=== PATIENT | male | born 1990 | race Caucasian/White ===

== ENCOUNTER 2018-01-14 16:44 | Observation (INO) | payer OTHER ==
--- NOTE | 2018-01-14 17:22 | PDOC ---
History of Present Illness - General History Source: Patient Exam Limitations: No Limitations - History of Present Illness Initial Comments: 01/14/18 17:55 The patient is a 27 year old male with no significant past medical history who presents to the ED with complaints of arthralgia and swelling of the joints for one week. The patient states he developed pain and swelling to his bilateral ankles and pain to his left elbow and left wrist over one week ago. Patient notes his symptoms progressively worsened and he developed pain to his right knee and swelling to his bilateral feet a few days ago. Patient notes his pain is worsened when he walks and is also worsened in the morning. He also reports sore throat, cough, night sweats and a subjective fever at night for the past several days. Patient reports taking 800 mg of ibuprofen with minimal relief of present symptoms. Denies similar symptoms in the past. Denies recent travel. Deneis exposure to new foods, lotions, or pets. Denies recent hiking or outdoor activities. Denies chest pain or shortness of breath. Denies dysuria or change in urinary output. Denies rashes or bruising. Denies any other symptoms. Social hx: The patient reports cigarette and marijuana use. 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 Patient reports multiple sexual partners in the past 6 months and states he uses protection most of the time. <Sae Waddell - Last Filed: 01/14/18 20:10> <Devaughn Florez - Last Filed: 01/14/18 20:47> - General Chief Complaint: Pain Stated Complaint: SWOLLEN ANKLES/PAIN Time Seen by Provider: 01/14/18 17:12 Past History <Sae Waddell - Last Filed: 01/14/18 20:10> - Past Medical History Asthma: Yes (seasonal) COPD: No - Suicide/Smoking/Psychosocial Hx Smoking History: Current every day smoker Number of Cigarettes Smoked Daily: 2 Information on smoking cessation initiated: No <Devaughn Florez - Last Filed: 01/14/18 20:47> - Past Medical History Allergies/Adverse Reactions: Allergies Allergy/AdvReac Type Severity Reaction Status Date / Time Penicillins Allergy Verified 01/14/18 16:49 Home Medications: Ambulatory Orders NK [No Known Home Medication] 01/14/18 Review of Systems - Review of Systems Able to Perform ROS?: Yes Comments:: 01/14/18 17:56 A complete review of 10 out of 10 review of systems is taken and is negative apart from what is previously mentioned below and in the HPI. <Sae Waddell - Last Filed: 01/14/18 20:10> *Physical Exam - Vital Signs Last Vital Signs Temp Pulse Resp BP Pulse Ox 97 F L 131 H 20 148/79 99 01/14/18 16:46 01/14/18 16:46 01/14/18 16:46 01/14/18 16:46 01/14/18 16:46 - Physical Exam Comments: 01/14/18 17:57 Vitals: Triage Vital signs reviewed General Appearance: no acute distress, well nourished well developed, Head: Atraumatic, normocephalic Neck: Supple;No Nuchal rigidity Chest Wall: Nontender Cardiac: Regular rate and rhythm, no murmurs, no rubs, no gallops, Lungs: Clear to auscultation bilateral, good air movement bilaterally, Abdomen: Soft, nondistended, normal bowel sounds, nontender to palpation Rectal: Exam deferred Extremities: + bilateral ankle swelling. Pain with range of motion of the left elbow, left wrist, and right knee. Full range of motion to all extremities, no cyanosis, clubbing. Skin: Warm and dry, no rashes or lesions, no petechiae Neuro: AOX3; Cranial Nerves 2-12 grossly c intact, Strength intact to all extremities, Sensation intact to all extremities, Psych: normal mood, normal affect <Sae Waddell - Last Filed: 01/14/18 20:10> - Vital Signs Last Vital Signs Temp Pulse Resp BP Pulse Ox 97 F L 131 H 20 148/79 99 01/14/18 16:46 01/14/18 16:46 01/14/18 16:46 01/14/18 16:46 01/14/18 16:46 <Devaughn Florez - Last Filed: 01/14/18 20:47> ED Treatment Course - LABORATORY CBC & Chemistry Diagram: 01/14/18 17:43 01/14/18 17:43 <Sae Waddell - Last Filed: 01/14/18 20:10> - LABORATORY CBC & Chemistry Diagram: 01/14/18 17:43 01/14/18 17:43 <Vikki,Devaughn - Last Filed: 01/14/18 20:47> Medical Decision Making - Medical Decision Making 01/14/18 17:58 The patient is a 27 year old male with no significant past medical history who presents to the ED with complaints of arthralgia and swelling of the joints for one week. Will obtain labs, Chest X-Ray, and rectal temp. Will give meds. 01/14/18 19:[address] Andrade, infectious disease, at 19:38 for consult and admission. 01/14/18 20:10 Case discussed with Hospitalist, Dr. Ivory, for admission at 20:05. <Sae Waddell - Last Filed: 01/14/18 20:10> - Medical Decision Making Polyarthralgia, with fever night sweats, recent URI prior to sx. Diff dx includes post strep/post viral/gonnoccocal/rheumatic. Case D/W Dr. Andrade. Will admit to f/u labs cx. Will treat with CTX <Devaughn Florez - Last Filed: 01/14/18 20:47> *DC/Admit/Observation/Transfer - Attestations Scribe Attestion: 01/14/18 17:59 Documentation prepared by Sae Waddell, acting as chief medical technologist for Devaughn Florez MD <Sae Waddell - Last Filed: 01/14/18 20:10> - Discharge Dispostion Admit: Yes <Devaughn Florez - Last Filed: 01/14/18 20:47> Diagnosis at time of Disposition: Polyarthralgia - Referrals Referrals: Prince Olson MD [Primary Care Provider] - - Patient Instructions - Post Discharge Activity
[2018-01-14 17:53] LABS: BASO % 0.6 % (0-2.0); EOS % 0.8 % (0-4.5); HEMATOCRIT 42.1 % (35.4-49); HEMOGLOBIN 14.5 GM/dL (11.7-16.9); LYMPH % 11.7 % (8-40); MCH 29.7 pg (25.7-33.7); MCHC 34.5 g/dl (32.0-35.9); MEAN CELL VOLUME 86.1 fl (80-96); MEAN PLT VOLUME 7.2 fl (7.5-11.1); MONO % 7.1 % (3.8-10.2); NEUT % 79.8 % (42.8-82.8); PLATELET COUNT 316 K/MM3 (134-434); RBC 4.89 M/mm3 (4.00-5.60); WHITE BLOOD COUNT 10.3 K/mm3 (4.0-10.0)
[2018-01-14] MEDS ORDERED: SODIUM CHLORIDE 0.9% 1000 ML INFUS.BAG IV ONE (18:10)
[2018-01-14 18:25] LABS: ALBUMIN 3.8 g/dl (3.4-5.0); ANION GAP 11 (8-16); BLOOD UREA NITROGEN 10 mg/dL (7-18); CALCIUM 8.9 mg/dL (8.5-10.1); CHLORIDE 104 mmol/L (98-107); CO2 23 mmol/L (21-32); CREATININE 0.8 mg/dL (0.7-1.3); GLUCOSE,RANDOM 109 mg/dL (74-106); POTASSIUM 3.7 mmol/L (3.5-5.1); SGOT/AST 26 U/L (15-37); SGPT/ALT 47 U/L (12-78); SODIUM 138 mmol/L (136-145); TOT PROT 7.4 g/dl (6.4-8.2)
[2018-01-14 18:26] LABS: ALK PHOS 100 U/L (45-117); BILIRUBIN,TOTAL 0.3 mg/dL (0.2-1.0)
[2018-01-14] MEDS ORDERED: SODIUM CHLORIDE 0.9% 1000 ML INFUS.BAG IV STA (18:26)
[2018-01-14 18:32] LABS: URINE APPEARANCE CLEAR; URINE BILIRUBIN NEGATIVE (<2.0 mg/dL); URINE BLOOD NEGATIVE (NEGATIVE); URINE COLOR YELLOW; URINE GLUCOSE (UA) NEGATIVE (NEGATIVE); URINE KETONE NEGATIVE (NEGATIVE); URINE LEUK ESTERASE NEGATIVE (NEGATIVE); URINE NITRITE NEGATIVE (NEGATIVE); URINE PROTEIN NEGATIVE (NEGATIVE); URINE UROBILINOGEN NEGATIVE mg/dL (0.2-1.0)
[2018-01-14] MEDS ORDERED: ACETAMINOPHEN 1000 MG/100 ML VIAL (NON FORMULARY) IVPB ONE (19:01)
[2018-01-14] MEDS ORDERED: ACETAMINOPHEN INJECTION 100 ML IVPB ONE (19:13)
[2018-01-14] MEDS ORDERED: CEFTRIAXONE 2 GM-D5W BAG 2 GM/50 ML BAG IVPB ONE (19:43)
[2018-01-14] MEDS ORDERED: CEFTRIAXONE 2 GM/100 ML BAG IVPB ONE (19:56)
--- NOTE | 2018-01-14 21:30 | PN ---
Teaching Attending Note Name of Resident: Jean Moran ATTENDING PHYSICIAN STATEMENT I saw and evaluated the patient. Chart, data, imaging reviewed. I reviewed the resident's note and discussed the case with the resident. I agree with the resident's findings and plan as documented. SUBJECTIVE: 27yo previously healthy man c/o b/l ankle swelling and pain, left elbow pain, knee, wrist pain b/l for about one week associated with fever, loose stools which started today. Pt says he had sore throat and cough about 3 weeks prior to onset of his symptoms. Reports some sick contacts, has had multiple sexual partners in the past year (all women) and had inconsistent condom use. Denied any IV drug abuse, recent travels, tick bites. ESR, CRP mildy elevated. Penicillin allergy(rash) tolerated ceftriaxone in the ER. OBJECTIVE: Last Vital Signs Temp Pulse Resp BP Pulse Ox 100.5 F H 131 H 20 148/79 99 01/14/18 18:11 01/14/18 16:46 01/14/18 16:46 01/14/18 16:46 01/14/18 16:46 General- nad, aaox3, obese heent- nc, at, no pharyngeal erythema neck supple cv-s1+s2+rrr chest- cta b/l abdomen- soft, nt SKin- no rashes seen Msk- b/l ankle swelling, nonerythemaotous, not warm to touch, elbows, wrists- no synovitis, swelling, or erythema Abnormal Lab Results 01/14/18 01/14/18 01/14/18 17:43 17:43 17:43 WBC 10.3 H MPV 7.2 L ESR Random Glucose 109 H C-Reactive Protein 6.5 H 01/14/18 17:43 WBC MPV ESR 27 H Random Glucose C-Reactive Protein CXR- -clear, sharp costophrenic angles ekg- nsr, no st- t changes ASSESSMENT AND PLAN: #28yo previously healthy man with acute onset of polyarthralgias with tenderness /swelling of ankles b/l- broad differential- likely to be had reactive arthritis post viral viral uri. Can also be primary viral induced arthritis such as 2/2 to parvovirus b19. Highly unlikely septic arthritis as this usually monoarthritis with hot and erythemaotous joint. Furthermore, pt has no risk factors. For same reason less likely to be crystal induced arthropathy. No family history of rheum dz so less likely to be autoimmune. Should r/o lyme dz. R/o Primary HIV infection as pt has mult sex partners and inconsistent condom use. -observation -send lyme serology -HIV 4th generation serology -GC/chlamydia NAAT in urine -syphilis serology -after school counselor on safe sex practices -CCRP, RF, CELESTE -f/u blood and urine cx -prednisone 40mg stat -ibuprofen 400mg PO q6hrs PRN -ID, rheum evaluation
[2018-01-14] MEDS ORDERED: predniSONE 20 MG TABLET (UD) PO ONE (21:31)
[2018-01-14] MEDS ORDERED: IBUPROFEN 400 MG TABLET (FP) PO PRN ×2 (21:45→22:22)
--- NOTE | 2018-01-14 21:45 | HP ---
CHIEF COMPLAINT: Joint Pain HISTORY OF PRESENT ILLNESS: 27 year old M with no significant pmh presented with 1 week history of foot swelling and joint pain in left elbow, wrist, and right knee as well as both ankles. Patient states over the past week he has been having increasing pain and swelling. The pain is 12/10, nonradiating, not improved by ibuprofen 800, and worse when he walks. Patient had a recent sore throat, cough, and viral illness 3 weeks ago. Patient endorses chills, ear pain, cough with green sputum , loose stools. Patient denies any fever, chest pain, shortness of breath, history of autoimmune disease, recent camping/travel, any tick bites, dysuria, blurry vision, hematuria, penile discharge. Patient is sexually active with women and engages in anal, oral, and vaginal sex. He uses condoms intermittently and has ~5 partners over the last year. Patient denies any rash. ROS as per hpi Recent Travel: denies PAST MEDICAL HISTORY: denies PAST SURGICAL HISTORY: denies Social History: Smoking: + few cigarettes/day, +marijuana Alcohol: occasional Drugs: None Family History: DM and HLD, no fhx of autoimmune dz or inflammatory arthritis Allergies Penicillins Allergy (Verified 01/14/18 16:49) HOME MEDICATIONS: Home Medications Medication Instructions Recorded NK [No Known Home Medication] 01/14/18 PHYSICAL EXAMINATION Vital Signs - 24 hr 01/14/18 01/14/18 16:46 18:11 Temperature 97 F L 100.5 F H Pulse Rate 131 H Respiratory 20 Rate Blood Pressure 148/79 O2 Sat by Pulse 99 Oximetry (%) GENERAL: Awake, alert, and fully oriented, in no acute distress. HEAD: Normal with no signs of trauma. EYES: Pupils equal, round and reactive to light, extraocular movements intact, sclera anicteric, conjunctiva clear. No lid lag. EARS, NOSE, THROAT: Oropharynx clear without exudates. Moist mucous membranes. No pharyngeal erythema NECK: Normal range of motion, supple without lymphadenopathy, JVD, or masses. LUNGS: Breath sounds equal, clear to auscultation bilaterally. No wheezes, and no crackles. No accessory muscle use. HEART: Regular rate and rhythm, normal S1 and S2 without murmur, rub or gallop. ABDOMEN: Soft, nontender, not distended, normoactive bowel sounds, no guarding, no rebound, no masses. No hepatomegaly or splenomegaly. MUSCULOSKELETAL: Normal range of motion at all joints. No bony deformities. No CVA tenderness. +tenderness at bilateral ankle joints on palpation. No erythema. +edema at ankle joints. No swelling elsewhere. NEUROLOGICAL: Cranial nerves II-XII intact. Normal speech PSYCHIATRIC: Cooperative. Good eye contact. Appropriate mood and affect. SKIN: Warm, dry, normal turgor, no rashes or lesions noted, normal capillary refill. Laboratory Results - last 24 hr 01/14/1818 01/14/18 17:43 17:43 17:43 WBC 10.3 H RBC 4.89 Hgb 14.5 Hct 42.1 MCV 86.1 MCH 29.7 MCHC 34.5 RDW 12.0 Plt Count 316 MPV 7.2 L Neutrophils % 79.8 Lymphocytes % 11.7 Monocytes % 7.1 Eosinophils % 0.8 Basophils % 0.6 ESR Sodium 138 Potassium 3.7 Chloride 104 Carbon Dioxide 23 Anion Gap 11 BUN 10 Creatinine 0.8 Creat Clearance w eGFR > 60 Random Glucose 109 H Lactic Acid Calcium 8.9 Total Bilirubin 0.3 AST 26 ALT 47 Alkaline Phosphatase 100 Creatine Kinase 111 C-Reactive Protein 6.5 H Total Protein 7.4 Albumin 3.8 Urine Color Urine Appearance Urine pH Ur Specific [place] Urine Protein Urine Glucose (UA) Urine Ketones Urine Blood Urine Nitrite Urine Bilirubin Urine Urobilinogen Ur Leukocyte Esterase 01/14/1818 01/14/18 17:43 18:25 19:00 WBC RBC Hgb Hct MCV MCH MCHC RDW Plt Count MPV Neutrophils % Lymphocytes % Monocytes % Eosinophils % Basophils % ESR 27 H Sodium Potassium Chloride Carbon Dioxide Anion Gap BUN Creatinine Creat Clearance w eGFR Random Glucose Lactic Acid 0.7 Calcium Total Bilirubin AST ALT Alkaline Phosphatase Creatine Kinase C-Reactive Protein Total Protein Albumin Urine Color Yellow Urine Appearance Clear Urine pH 5.0 Ur Specific [place] 1.018 Urine Protein Negative Urine Glucose (UA) Negative Urine Ketones Negative Urine Blood Negative Urine Nitrite Negative Urine Bilirubin Negative Urine Urobilinogen Negative Ur Leukocyte Esterase Negative ASSESSMENT/PLAN: 27 year old M with no pmh presented with polyarthritis and feet swelling after a recent URI #Polyarthralgias and edema after a viral URI -Lyme serology -CELESTE -GC urine -HIV testing -CELESTE, RF, CCP -Cx pending -Prednisone 40 mg given -Ibuprofen 400 q6 prn -ID consulted -Rheumatology consulted #FEN/GI -no ivf -wnl -regular #ppx -early ambulation M/S Obs Visit type - Emergency Visit Emergency Visit: Yes ED Registration Date: 01/14/18 Care time: The patient presented to the Emergency Department on the above date and was hospitalized for further evaluation of their emergent condition. - New Patient This patient is new to me today: Yes Date on this admission: 01/14/18 - Critical Care Critical Care patient: No Hospitalist Screening - Colonoscopy Questionnaire Colonoscopy Questionnaire: Colonoscopy Questionnaire - Patient: 50 - 75 years old and never had a screening colonoscopy: Unknown History of colon or rectal polyps, or CA: Unknown History of IBD, Crohn's disease or UC: Unknown History of abdominal radiation therapy as a child: Unknown - Relative: 1 with colon or rectal CA, or polyps at age 60 or younger: Unknown Colon or rectal CA diagnosed at age 45 or younger: Unknown Multiple relatives with colon or rectal CA: Unknown - Outcome: Screening Result: Negative Screen
[2018-01-14] MEDS ORDERED: predniSONE 20 MG TABLET (UD) ONE (21:50)
[2018-01-15] MEDS ORDERED: MELATONIN 5 MG TABLETS PO ONE (00:34)
[2018-01-15 02:12] VITALS: BMI 30.9
[2018-01-15 06:52] VITALS: BP 129/90; PULSE 72; TEMP 97.5
[2018-01-15 08:10] LABS: BASO % 0.6 % (0-2.0); HEMATOCRIT 44.4 % (35.4-49); HEMOGLOBIN 15.3 GM/dL (11.7-16.9); LYMPH % 11.2 % (8-40); MCHC 34.5 g/dl (32.0-35.9); MEAN PLT VOLUME 7.4 fl (7.5-11.1); NEUT % 85.2 % (42.8-82.8); PLATELET COUNT 330 K/MM3 (134-434); RDW 12.1 % (11.9-15.9); WHITE BLOOD COUNT 9.8 K/mm3 (4.0-10.0)
[2018-01-15 08:41] LABS: ALBUMIN 3.8 g/dl (3.4-5.0); ANION GAP 9 (8-16); BLOOD UREA NITROGEN 8 mg/dL (7-18); CALCIUM 9.6 mg/dL (8.5-10.1); CHLORIDE 106 mmol/L (98-107); CO2 26 mmol/L (21-32); CREATININE 0.7 mg/dL (0.7-1.3); GLUCOSE,RANDOM 118 mg/dL (74-106); MAGNESIUM 2.5 mg/dL (1.8-2.4); POTASSIUM 4.4 mmol/L (3.5-5.1); SGOT/AST 27 U/L (15-37); SGPT/ALT 48 U/L (12-78); SODIUM 141 mmol/L (136-145); TOT PROT 7.5 g/dl (6.4-8.2)
[2018-01-15 08:46] LABS: ALK PHOS 103 U/L (45-117); BILIRUBIN,TOTAL 0.4 mg/dL (0.2-1.0); PHOSPHOROUS 3.7 mg/dL (2.5-4.9)
[2018-01-15] MEDS ORDERED: NICOTINE 14 MG/24 HOURS TOPICAL PATCH TD SCH (10:00)
--- NOTE | 2018-01-15 15:14 | HOSP ---
Subjective - Review of Symptoms Events since last encounter: patient left AMA without waiting for MD dozier. Physical Examination Vital Signs: Vital Signs Temperature 97.5 F L 01/15/18 05:00 Pulse Rate 72 01/15/18 05:00 Respiratory Rate 20 01/15/18 05:36 Blood Pressure 129/90 01/15/18 05:00 O2 Sat by Pulse Oximetry (%) 99 01/15/18 05:36 Labs: CBC, BMP 01/15/18 07:40 01/15/18 07:40
--- NOTE | 2018-01-15 15:32 | EKG ---
Test Reason : Blood Pressure : / mmHG Vent. Rate : 088 BPM Atrial Rate : 088 BPM P-R Int : 168 ms QRS Dur : 092 ms QT Int : 368 ms P-R-T Axes : 038 031 016 degrees QTc Int : 445 ms NORMAL SINUS RHYTHM NORMAL ECG NO PREVIOUS ECGS AVAILABLE Confirmed by AKOSUA CARIAS, VIANEY ([id number]) on 01/15/2018 3:32:31 PM Referred By: Confirmed By:VIANEY SOUTH MD
--- NOTE | 2018-01-16 14:00 | DS ---
Physical Exam: Microbiology 01/14/18 20:00 Throat Group A Strep Rapid Antigen - Final 01/14/18 18:25 Urine - Urine Clean Catch Urine Culture - Final NO GROWTH OBTAINED 01/14/18 20:00 Throat Throat Culture - Preliminary 01/14/18 20:00 Throat Pending Organism 01/14/18 17:43 Blood - Peripheral Venous Blood Culture - Preliminary NO GROWTH OBTAINED AFTER 24 HOURS, INCUBATION TO CONTINUE FOR 4 DAYS. 01/14/18 17:43 Blood - Peripheral Venous Blood Culture - Preliminary NO GROWTH OBTAINED AFTER 24 HOURS, INCUBATION TO CONTINUE FOR 4 DAYS. Selected Entries 01/14/18 01/14/18 01/15/18 16:46 18:11 05:00 Temperature 97 F L 100.5 F H 97.5 F L Pulse Rate 131 H 72 Respiratory Rate Blood Pressure 129/90 O2 Sat by Pulse Oximetry (%) 01/15/18 05:36 Temperature Pulse Rate Respiratory 20 Rate Blood Pressure O2 Sat by Pulse 99 Oximetry (%) Laboratory Tests 01/14/18 01/14/18 01/14/18 17:43 17:43 17:43 WBC 10.3 H Hgb Hct Plt Count ESR 27 H Sodium Potassium Chloride Carbon Dioxide Anion Gap BUN Creatinine Creat Clearance w eGFR Random Glucose C-Reactive Protein 6.5 H Urine Protein Urine Glucose (UA) Urine Ketones Urine Blood Urine Nitrite Urine Bilirubin Urine Urobilinogen Ur Leukocyte Esterase Rheumatoid Factor Cycl Citrul Peptide IgG CELESTE Screen RPR Titer Lyme Disease IgG/IgM C. trachomatis (FRANCIE) HIV 1&2 Antibody Screen HIV P24 Antigen N. gonorrhoeae (FRANCIE) Anti-Streptolysin Scrn 01/14/18 01/14/18 01/14/18 18:25 18:25 18:25 WBC Hgb Hct Plt Count ESR Sodium Potassium Chloride Carbon Dioxide Anion Gap BUN Creatinine Creat Clearance w eGFR Random Glucose C-Reactive Protein Urine Protein Negative Urine Glucose (UA) Negative Urine Ketones Negative Urine Blood Negative Urine Nitrite Negative Urine Bilirubin Negative Urine Urobilinogen Negative Ur Leukocyte Esterase Negative Rheumatoid Factor Cycl Citrul Peptide IgG CELESTE Screen RPR Titer Lyme Disease IgG/IgM Pending C. trachomatis (FRANCIE) Pending HIV 1&2 Antibody Screen HIV P24 Antigen N. gonorrhoeae (FRANCIE) Pending Anti-Streptolysin Scrn 01/14/18 01/14/18 01/15/18 20:15 20:18 07:40 WBC 9.8 Hgb 15.3 Hct 44.4 Plt Count 330 ESR Sodium Potassium Chloride Carbon Dioxide Anion Gap BUN Creatinine Creat Clearance w eGFR Random Glucose C-Reactive Protein Urine Protein Urine Glucose (UA) Urine Ketones Urine Blood Urine Nitrite Urine Bilirubin Urine Urobilinogen Ur Leukocyte Esterase Rheumatoid Factor Cycl Citrul Peptide IgG CELESTE Screen Pending RPR Titer Lyme Disease IgG/IgM C. trachomatis (FRANCIE) HIV 1&2 Antibody Screen HIV P24 Antigen N. gonorrhoeae (FRANCIE) Anti-Streptolysin Scrn 50.1 01/15/18 01/15/18 01/15/18 07:40 07:40 07:40 WBC Hgb Hct Plt Count ESR Sodium 141 Potassium 4.4 Chloride 106 Carbon Dioxide 26 Anion Gap 9 BUN 8 Creatinine 0.7 Creat Clearance w eGFR > 60 Random Glucose 118 H C-Reactive Protein Urine Protein Urine Glucose (UA) Urine Ketones Urine Blood Urine Nitrite Urine Bilirubin Urine Urobilinogen Ur Leukocyte Esterase Rheumatoid Factor < 10.0 Cycl Citrul Peptide IgG Pending CELESTE Screen RPR Titer Lyme Disease IgG/IgM C. trachomatis (FRANCIE) HIV 1&2 Antibody Screen Negative HIV P24 Antigen Negative N. gonorrhoeae (FRANCEI) Anti-Streptolysin Scrn 01/15/18 07:40 WBC Hgb Hct Plt Count ESR Sodium Potassium Chloride Carbon Dioxide Anion Gap BUN Creatinine Creat Clearance w eGFR Random Glucose C-Reactive Protein Urine Protein Urine Glucose (UA) Urine Ketones Urine Blood Urine Nitrite Urine Bilirubin Urine Urobilinogen Ur Leukocyte Esterase Rheumatoid Factor Cycl Citrul Peptide IgG CELESTE Screen RPR Titer Nonreactive Lyme Disease IgG/IgM C. trachomatis (FRANCIE) HIV 1&2 Antibody Screen HIV P24 Antigen N. gonorrhoeae (FRANCIE) Anti-Streptolysin Scrn cxr-possible perihilar infiltrate HOSPITAL COURSE: Date of Admission:01/14/18 Date of Discharge: 01/16/18 27 year old M with no significant pmh presented with 1 week history of foot swelling and joint pain in left elbow, wrist, and right knee as well as both ankles. Patient admitted for polyarthralgias and edema after a viral URI. Labs were drawn and patient treated with 1 dose of prednisone 40 mg. However patient eloped prior to being seen by MD on Tuesday morning. Minutes to complete discharge: 38 Discharge Summary Reason For Visit: ARTHRALGIA OF MULTIPLE JOINTS - Instructions Referrals: Prince Olson MD [Primary Care Provider] - Disposition: ELOPED - Home Medications Comprehensive Discharge Medication List: Ambulatory Orders NK [No Known Home Medication] 01/14/18 This patient is new to me today: No Emergency Visit: Yes ED Registration Date: 01/14/18 Care time: The patient presented to the Emergency Department on the above date and was hospitalized for further evaluation of their emergent condition. Critical Care patient: No - Discharge Referral Referred to [facility] Med [facility] No
== END 2018-01-15 08:30 | disposition left against medical advice (07) ==
LOC: JER 16:44 → JERBED 20:20 → J6S 01-15 00:17
PROVIDERS: ADMIT Internal Medicine; ATTEND Internal Medicine
PROC: 3E033GC Introduction of Other Therapeutic Substance into Peripheral Vein, Percutaneous Approach (ICD-10-PCS; principal; 2018-01-14)
PROC: 3E0337Z Introduction of Electrolytic and Water Balance Substance into Peripheral Vein, Percutaneous Approach (ICD-10-PCS; 2018-01-14)
DX: M25.50 Pain in unspecified joint (principal); R60.9 Edema, unspecified; F17.210 Nicotine dependence, cigarettes, uncomplicated; Z88.0 Allergy status to penicillin
CPT/HCPCS: 36415; 71046-TC-FY; 80053; 81003; 82550; 83605; 83735; 84100; 85025; 85651; 86038; 86060; 86140; 86200; 86431; 86593; 87040; 87070; 87086; 87389; 87430; 87491; 87591; 93005; 93010; 96365; 96375; 99285-25; G0378; J0131; J7030

== ENCOUNTER 2018-08-26 11:30 | Emergency (ER) | payer OTHER ==
[2018-08-26 11:35] VITALS: BP 156/95; PULSE 93; TEMP 98.4; BMI 30.4
[2018-08-26] MEDS ORDERED: ALBUTEROL SO4 0.083% IH SOL 2.5 MG/3 ML VIAL.NEB. NEB ONE (11:41)
--- NOTE | 2018-08-26 12:27 | PDOC ---
History of Present Illness - General Chief Complaint: Shortness of Breath Stated Complaint: ASTHMA Time Seen by Provider: 08/26/18 12:05 History Source: Patient Exam Limitations: No Limitations - History of Present Illness Initial Comments: 08/26/18 12:42 27 year old male with no medical or surgical history presents with asthma exacerbation and rash. Patient reports rash on trunk x 2 weeks, seen at [address] [place] [address], treated for scabies one week ago but rash still persist. Asking for another dose of treatment. Also reports shortness of breath due to asthma exacerbation x 3 days. States has no pump and admits to cigarette and marijuana use daily. Denies chest pain or discomfort. Timing/Duration: reports: yesterday Severity: reports: moderate Possible Cause: Yes: smoke exposure Modifying Factors: improves with: albuterol nebulizer Associated Symptoms: reports: cough. denies: chest pain/soreness, fever/chills Aspirin Received prior to arrival: Yes: no aspirin today ASA Contraindications(Core Measure): No: Allergy Beta Miri Contraindications(Core Measure): Yes: Not Prescribed Past History - Travel Traveled outside of the country in the last 30 days: Yes Close contact w/someone who was outside of country & ill: No - Past Medical History Allergies/Adverse Reactions: Allergies Allergy/AdvReac Type Severity Reaction Status Date / Time Penicillins Allergy Verified 08/26/18 11:35 Home Medications: Ambulatory Orders Albuterol Sulfate Inhaler - [Ventolin HFA Inhaler -] 1 - 2 inh PO Q4H #1 inhaler 08/26/18 Permethrin [Elimite] 60 gm TP ONCE #1 cream..g. 08/26/18 Asthma: Yes (seasonal) COPD: No - Suicide/Smoking/Psychosocial Hx Smoking History: Current every day smoker Number of Cigarettes Smoked Daily: 2 Information on smoking cessation initiated: No Hx Alcohol Use: No Drug/Substance Use Hx: Yes (weed) Substance Use Type: Marijuana Hx Substance Use Treatment: No Review of Systems - Review of Systems Able to Perform ROS?: Yes Is the patient limited Luxembourgish proficient: No Constitutional: No: Chills, Fever HEENTM: Yes: Nose Congestion Respiratory: Yes: Cough, Shortness of Breath, Productive cough Cardiac (ROS): No: Chest Pain, Lightheadedness, Palpitations ABD/GI: No: Abdominal Distended, Nausea, Vomiting, Indigestion : No: Incontinence, Testicular Swelling Integumentary: Yes: Rash *Physical Exam - Vital Signs Last Vital Signs Temp Pulse Resp BP Pulse Ox 98.4 F 93 H 18 156/95 96 08/26/18 11:33 08/26/18 11:33 08/26/18 11:33 08/26/18 11:33 08/26/18 11:33 - Physical Exam General Appearance: Yes: Nourished, Appropriately Dressed HEENT: positive: KYM, Normal ENT Inspection, TMs Normal, Nasal Congestion Neck: positive: Trachea midline. 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 NML intact, Fully Oriented, Alert Moderate Sedation - Procedure Monitoring Vital Signs: Procedure Monitoring Vital Signs Temperature 98.4 F 08/26/18 11:33 Pulse Rate 93 H 08/26/18 11:33 Respiratory Rate 18 08/26/18 11:33 Blood Pressure 156/95 08/26/18 11:33 O2 Sat by Pulse Oximetry (%) 96 08/26/18 11:33 Medical Decision Making - Medical Decision Making 08/26/18 12:46 27 year old male with shortness of breath x 3 days and rash x 2 weeks nebulizer treatment x 3 with relief Rx: elimite cream *DC/Admit/Observation/Transfer Diagnosis at time of Disposition: Scabies infestation Asthma exacerbation Qualifiers: Asthma severity: mild Asthma persistence: intermittent Qualified Code(s): J45.21 - Mild intermittent asthma with (acute) exacerbation - Discharge Dispostion Disposition: HOME Condition at time of disposition: Good Decision to Admit order: No - Prescriptions Prescriptions: Albuterol Sulfate Inhaler - [Ventolin HFA Inhaler -] 1 - 2 inh PO Q4H #1 inhaler Permethrin [Elimite] 60 gm TP ONCE #1 cream..g. - Referrals - Patient Instructions Printed Discharge Instructions: DI for Asthma -- Adult, DI for Rash, How to Use a Metered-Dose Inhaler-Child Additional Instructions: Please stop or decrease smoking Use albuterol pump every 4 hours Treat fever with acetaminophen or ibuprofen Please follow up with primary physician Wash all linen in hot water - Post Discharge Activity Forms/Work/School Notes: Back to Work
[2018-08-26] MEDS ORDERED: ALBUTEROL SO4 2.5/IPRATROPIUM 0.5 INH SOL 3 ML VIAL.NEB. NEB ONE ×2 (12:29→12:49)
[2018-08-26] MEDS: ALBUTEROL SO4 2.5/IPRATROPIUM 0.5 INH SOL 3 ML VIAL.NEB. NEB SCH ×3 (12:30→13:06)
== END 2018-08-26 13:06 | disposition home or self-care (01) ==
LOC: JER 11:30 → JERFT 11:30
DX: J45.21 Mild intermittent asthma with (acute) exacerbation (principal); B86 Scabies; F17.210 Nicotine dependence, cigarettes, uncomplicated; F12.10 Cannabis abuse, uncomplicated
CPT/HCPCS: 99281-25

== ENCOUNTER 2020-05-20 13:12 | Emergency (ER) | payer OTHER ==
[2020-05-20 13:26] VITALS: BMI 30.4
--- NOTE | 2020-05-20 13:28 | PDOC ---
Rapid Medical Evaluation Time Seen by Provider: 05/20/20 13:24 Medical Evaluation: Allergies Allergy/AdvReac Type Severity Reaction Status Date / Time Penicillins Allergy Verified 05/20/20 13:23 05/20/20 13:25 HPI: 29 year old male pmhx of HTn complaining of chest pain worse with exertion. PE: CTA RRR EKG at triage NSR A/P: Labs Chest XR Pt to precede to ED for further evaluation and treatment.
[2020-05-20 15:18] LABS: BASO % 0.9 % (0-2.0); EOS % 2.1 % (0-4.5); HEMATOCRIT 48.2 % (35.4-49); HEMOGLOBIN 16.2 GM/dL (11.7-16.9); LYMPH % 24.9 % (8-40); MCH 29.9 pg (25.7-33.7); MCHC 33.6 g/dl (32.0-35.9); MEAN PLT VOLUME 7.6 fl (7.5-11.1); MONO % 6.7 % (3.8-10.2); NEUT % 65.4 % (42.8-82.8); PLATELET COUNT 280 K/MM3 (134-434); RBC 5.42 M/mm3 (4.00-5.60); RDW 12.3 % (11.9-15.9); WHITE BLOOD COUNT 7.7 K/mm3 (4.0-10.0)
--- NOTE | 2020-05-20 15:34 | PDOC ---
History of Present Illness - General Chief Complaint: Chest Pain Stated Complaint: CHEST PAIN/ LT. SIDE NUMBING Time Seen by Provider: 05/20/20 13:24 History Source: Patient Exam Limitations: No Limitations - History of Present Illness Initial Comments: 05/20/20 16:28 29-year-old male presents to ED with complaints of left sided chest soreness worsened with movement for the past few days associated with now left shoulder soreness worsened with movement causing tingling to his bicep. Patient denies headache, visual changes, lower extremity edema, cough, or shortness of breath. Patient does state has hypertension but is currently on no medication although he was told to follow diet by his primary care physician Dr. Olson but failed to do so. Patient does smoke cigarettes on a daily basis but denies any other illicit drug use. Presenting Symptoms: Chest Pain Timing/Duration: reports: constant Severity/Quality: reports: mild Location: reports: substernal (left) Activities at Onset: reports: none Prior Chest Pain/Cardiac Workup: reports: No prior chest pain Beta Miri Contraindications (Core Measure): Yes: Not Prescribed Associated Symptoms: Yes: Chest Pain/pressure. No: Fever/chills, Palpitations, Syncope, Vomiting, Weakness Past History - Travel History Traveled outside of the country in the last 30 days: No Close contact w/someone who was outside of country & ill: No - Medical History Allergies/Adverse Reactions: Allergies Allergy/AdvReac Type Severity Reaction Status Date / Time Penicillins Allergy Verified 05/20/20 13:23 Home Medications: Ambulatory Orders Albuterol Sulfate Inhaler - [Ventolin HFA Inhaler -] 1 - 2 inh PO Q4H #1 inhaler 08/26/18 Permethrin [Elimite] 60 gm TP ONCE #1 cream..g. 08/26/18 Asthma: Yes (seasonal) COPD: No HTN: Yes - Immunization History Immunization Up to Date: No - Psycho-Social/Smoking History Patient Lives Alone: No Lives with/in: parents Smoking History: Current every day smoker Number of Cigarettes Smoked Daily: 2 Information on smoking cessation initiated: No - Substance Abuse Hx (Audit-C & DAST Scrn) How often the patient has a drink containing alcohol: Never Score: In Men: 4 or > Positive; In Women: 3 or > Positive: 0 Screen Result (Pos requires Nsg. Audit-10AR): Negative In the last yr the pt used illegal drug/Rx for NonMed reason: Yes Score: Yes response is considered Positive: 1 Screen Result (Positive result requires Nsg. DAST-10): Positive Review of Systems - Review of Systems Able to Perform ROS?: Yes Is the patient limited Tajik proficient: No Constitutional: No: Symptoms Reported HEENTM: No: Symptoms Reported Respiratory: No: Symptoms reported Cardiac (ROS): Yes: Chest Pain ABD/GI: No: Symptoms Reported : No: Symptoms Reported Musculoskeletal: Yes: Muscle Pain Neurological: Yes: Tingling. No: Numbness, Weakness, Dizziness *Physical Exam - Vital Signs Last Vital Signs Temp Pulse Resp BP Pulse Ox 91 H 20 149/108 H 100 05/20/20 13:23 05/20/20 13:23 05/20/20 13:23 05/20/20 13:23 - Physical Exam General Appearance: Yes: Nourished, Appropriately Dressed. No: Apparent Distress HEENT: negative: Pale Conjunctivae Neck: positive: Supple Respiratory/Chest: positive: Chest Tender (left upper chest near 2-3 ics lat of [place]), Lungs Clear, Normal Breath Sounds. negative: Respiratory Distress, Accessory Muscle Use Cardiovascular: positive: Regular Rhythm, Regular Rate. negative: Murmur Gastrointestinal/Abdominal: positive: Soft. negative: Tenderness Extremity: positive: Normal Capillary Refill. negative: Pedal Edema Integumentary: positive: Normal Color, Warm, Moist Neurologic: positive: Motor Strength 5/5 (ambulatory) Heart Score/ECG Review - ECG Intrepretation Rhythm: Regular Rhythm (Rate 94 normal sinus rhythm. No ST elevation or depression. QTc 445 ms) ED Treatment Course - LABORATORY CBC & Chemistry Diagram: 05/20/20 14:59 05/20/20 14:59 - ADDITIONAL ORDERS Additional order review: 05/20/20 14:59 RBC 5.42 MCV 89.0 MCHC 33.6 RDW 12.3 MPV 7.6 Neutrophils % 65.4 D Lymphocytes % 24.9 D Monocytes % 6.7 D Eosinophils % 2.1 D Basophils % 0.9 Medical Decision Making - Medical Decision Making 05/20/20 16:33 Chief complaint: Patient with left-sided chest pain worsened with movement for the past 2 days patient took no medication for the above and decided come to the ER for further evaluation. Patient denies any other complaints at this time. Patient also does not take medication for his blood pressure nor does he follow a diet as instructed by his primary care physician. Exam: Patient with normal physical exam except for elevated blood pressure. EKG shows normal sinus rhythm. Plan: Patient will follow cardiac work-up including chest x-ray and EKG. 05/20/20 16:34 Laboratory Tests 05/20/20 05/20/20 14:59 14:59 WBC 7.7 Hgb 16.2 Hct 48.2 Absolute Neuts (auto) 5.0 Sodium 138 Potassium 4.1 Chloride 105 Carbon Dioxide 23 Anion Gap 10 BUN 11.2 Creatinine 0.9 Est GFR (CKD-EPI)AfAm 135.19 Est GFR (CKD-EPI)NonAf 116.64 Random Glucose 94 Calcium 9.4 Total Bilirubin 0.7 AST 49 H ALT 91 H Alkaline Phosphatase 78 Creatine Kinase 138 Troponin I < 0.02 Total Protein 7.3 Albumin 4.1 Patient will be discharged home. Chest x-ray shows no acute pathology. Patient will be given diet instructions in regards to controlling his salt and fat intake. Patient also to follow-up with his PCP in 1 month for repeat blood pressure and consideration of placing on medication for uncontrolled hypertension Discharge - Discharge Information Problems reviewed: Yes Clinical Impression/Diagnosis: Atypical chest pain Condition: Good Disposition: HOME - Follow up/Referral Referrals: Elbert Orantes MD [Non Staff, Medical] - - Patient Discharge Instructions Patient Printed Discharge Instructions: DI for Musculoskeletal Pain, Recommen dations to Help Prevent High Blood Pressure, High Blood Pressure (Hypertension) (Alternative Therapy) Additional Instructions: Please follow a low-fat low-salt low-cholesterol diet as discussed here in the ER. I also recommend like discussed earlier about walking briskly or trying to jog for at least 1/2-hour 3-4 times a week. Follow-up with Dr. Olson in 1 month for repeat vitals and exam - Post Discharge Activity
[2020-05-20 15:44] LABS: ALBUMIN 4.1 g/dl (3.4-5.0); ALK PHOS 78 U/L (45-117); ANION GAP 10 MMOL/L (8-16); BILIRUBIN,TOTAL 0.7 mg/dL (0.2-1); BLOOD UREA NITROGEN 11.2 mg/dL (7-18); CALCIUM 9.4 mg/dL (8.5-10.1); CHLORIDE 105 mmol/L (98-107); CO2 23 mmol/L (21-32); CREATININE 0.9 mg/dL (0.55-1.3); GLUCOSE,RANDOM 94 mg/dL (74-106); POTASSIUM 4.1 mmol/L (3.5-5.1); SGOT/AST 49 U/L (15-37); SGPT/ALT 91 U/L (13-61); SODIUM 138 mmol/L (136-145); TOT PROT 7.3 g/dl (6.4-8.2)
[2020-05-20 17:09] VITALS: BP 147/98; PULSE 90
--- NOTE | 2020-05-21 10:26 | EKG ---
Test Reason : Blood Pressure : / mmHG Vent. Rate : 094 BPM Atrial Rate : 094 BPM P-R Int : 160 ms QRS Dur : 090 ms QT Int : 356 ms P-R-T Axes : 019 011 007 degrees QTc Int : 445 ms NORMAL SINUS RHYTHM NORMAL ECG WHEN COMPARED WITH ECG OF 14-JAN-2018 21:06, NO SIGNIFICANT CHANGE WAS FOUND Confirmed by MD Willis Daniel ([id number]) on 05/21/2020 10:25:47 AM Referred By: Confirmed By:Elbert Willis MD
== END 2020-05-20 17:00 | disposition home or self-care (01) ==
LOC: JER 13:12
DX: R07.89 Other chest pain (principal)
CPT/HCPCS: 36415; 71046-TC-FY; 80053; 82550; 84484; 85025; 93005; 93010; 99285-25

== ENCOUNTER 2021-04-13 01:23 | Emergency (ER) | payer OTHER ==
[2021-04-13 01:43] VITALS: TEMP 98.2; BMI 33.4
[2021-04-13] MEDS ORDERED: PANTOPRAZOLE SODIUM 40 MG VIAL IVPUSH ONE (03:41)
[2021-04-13] MEDS ORDERED: MAG HYDROX/AL HYDROX/SIMETH 30 ML UNIT-DOSE CUP PO PRN (03:42)
[2021-04-13] MEDS ORDERED: FAMOTIDINE 20 MG/50 ML IVPB 20 MG/50 ML MG IVPB ONE ×2 (03:42→03:59)
[2021-04-13] MEDS ORDERED: MAG HYDROX/AL HYDROX/SIMETH 30 ML UNIT-DOSE CUP ONE (03:48)
[2021-04-13] MEDS ORDERED: PANTOPRAZOLE SODIUM 40 MG VIAL ONE (03:48)
[2021-04-13 03:56] VITALS: BP 150/109; PULSE 108
[2021-04-13 04:24] LABS: BASO % 1.2 % (0-2.0); HEMOGLOBIN 16.6 GM/dL (11.7-16.9); MCH 30.2 pg (25.7-33.7); MCHC 34.5 g/dl (32.0-35.9); MEAN CELL VOLUME 87.4 fl (80-96); MEAN PLT VOLUME 8.1 fl (7.5-11.1); MONO % 7.1 % (3.8-10.2); NEUT % 60.7 % (42.8-82.8); PLATELET COUNT 318 10^3/uL (134-434); RBC 5.49 M/mm3 (4.00-5.60); RDW 12.6 % (11.9-15.9); WHITE BLOOD COUNT 9.2 K/mm3 (4.0-10.0)
[2021-04-13 04:36] LABS: CALCIUM 9.4 mg/dL (8.5-10.1)
[2021-04-13 04:38] LABS: ALBUMIN 4.3 g/dl (3.4-5.0); BLOOD UREA NITROGEN 11.7 mg/dL (7-18)
[2021-04-13 04:41] LABS: CREATININE 0.9 mg/dL (0.55-1.3)
[2021-04-13 04:42] LABS: BILIRUBIN,TOTAL 0.3 mg/dL (0.2-1); TOT PROT 7.6 g/dl (6.4-8.2)
== END 2021-04-13 05:30 | disposition home or self-care (01) ==
LOC: JER 01:23
PROC: 3E033GC Introduction of Other Therapeutic Substance into Peripheral Vein, Percutaneous Approach (ICD-10-PCS; principal; 2021-04-13)
PROC: 3E033GC Introduction of Other Therapeutic Substance into Peripheral Vein, Percutaneous Approach (ICD-10-PCS; 2021-04-13)
DX: I10 Essential (primary) hypertension (principal)
CPT/HCPCS: 36415; 80053; 82962; 83690; 85025; 93005; 93010; 99284-25

== ENCOUNTER 2021-07-10 13:32 | Emergency (ER) | payer OTHER ==
[2021-07-10 13:50] VITALS: BP 131/84; TEMP 98.6; BMI 34.7
[2021-07-10 13:52] VITALS: PULSE 119
== END 2021-07-10 14:49 | disposition home or self-care (01) ==
LOC: JERFT 13:32
DX: L73.9 Follicular disorder, unspecified (principal)
CPT/HCPCS: 87070; 87205; 99283-25

== ENCOUNTER 2022-11-05 13:01 | Emergency (ER) | payer OTHER ==
[2022-11-05 13:07] VITALS: BP 160/108; PULSE 83; RESP 20; TEMP 98; BMI 34.9
== END 2022-11-05 15:23 | disposition home or self-care (01) ==
LOC: JERFT 13:01
DX: H10.33 Unspecified acute conjunctivitis, bilateral (principal)
CPT/HCPCS: 99283-25